=== PATIENT | male | born 1995 | race Hispanic/Latino ===

== ENCOUNTER 2021-02-24 00:19 | Emergency (ER) | payer BC, OTHER ==
[~2021-02-24] VITALS: Ht 177.8 cm; Wt 127.0 kg
[2021-02-24 00:27] VITALS: BP 155/108
[2021-02-24] MEDS ORDERED: SOLU-MEDROL 125MG VIAL IVP ONE (00:30)
[2021-02-24] MEDS ORDERED: 0.9%NACL 1000ML 1,000 ML IV ONE (00:30)
[2021-02-24] MEDS ORDERED: FAMOTIDINE 20MG VIAL IV ONE (00:30)
[2021-02-24] MEDS ORDERED: PRED5SOL PO (01:15)
[2021-02-24] MEDS ORDERED: LORA10TA7 PO (01:15)
== END 2021-02-24 01:28 | disposition home or self-care (01) ==
LOC: EDH 00:19
DX: T78.49XA Other allergy, initial encounter (principal); Z79.52 Long term (current) use of systemic steroids; X58.XXXA Exposure to other specified factors, initial encounter
CPT/HCPCS: 96361; 96374; 96375; 99284; J2930; J3490; J7030